=== PATIENT | female | born 1940 | race Caucasian/White ===

== ENCOUNTER → 2017-01-20 | Outpatient (CLI) | payer MEDICARE ==
--- NOTE | 2017-01-24 07:31 | MM ---
Reason for exam: screening (asymptomatic). Last mammogram was performed 1 year and 10 months ago. History: Patient is postmenopausal. Family history of breast cancer in grandmother. Physical Findings: A clinical breast exam by your physician is recommended on an annual basis and results should be correlated with mammographic findings. MG 3D Screening Mammo W/Cad Bilateral CC and MLO view(s) were taken. Prior study comparison: March 17, 2015, bilateral MG screening mammo w CAD. January 21, 2014, bilateral digital screening mammo w/CAD. October 10, 2012, bilateral digital screening mammo w/CAD. Finding: There are typically benign vascular, round calcifications in both breasts. There is no discrete abnormality. ASSESSMENT: Benign, BI-RAD 2 RECOMMENDATION: Routine screening mammogram of both breasts in 1 year.
== END | disposition home or self-care (01) ==
LOC: RADMAMWWP 12:45
PROVIDERS: ATTEND Family Medicine
DX: Z12.31 Encounter for screening mammogram for malignant neoplasm of breast (principal)
CPT/HCPCS: 77063; G0202

== ENCOUNTER → 2017-02-22 | Outpatient (CLI) | payer MEDICARE ==
--- NOTE | 2017-02-22 16:40 | US ---
EXAMINATION TYPE: US kidneys/renal and bladder DATE OF EXAM: 02/22/2017 4:21 PM COMPARISON: NONE CLINICAL HISTORY: HX of Microhematuria R31.21; Prior renal stones per patient. EXAM MEASUREMENTS: Right Kidney: 10.7 x 5.4 x 4.5 cm Left Kidney: 11.3 x 5.5 x 5.0 cm Post Void Residual Volume: 15.8 mL Right Kidney: cortical thinning is noted, but measures >0.8cm Left Kidney: lobular borders; cortical thinning is present as is <0.8cm; very mild hydro noted on papa ges #37 and 44. Bladder: wnl Bilateral Jets seen: Yes Normal Post Void Residual: Yes The urinary bladder is anechoic. Bilateral ureteral jets are seen. IMPRESSION: Bilateral cortical thinning. Mild left-sided hydronephrosis suggested.
== END ==
LOC: RADUSMAIN 15:51
PROVIDERS: ATTEND Urology
DX: R31.29 Other microscopic hematuria (principal)
CPT/HCPCS: 76770

== ENCOUNTER → 2018-11-12 | Outpatient (CLI) | payer MEDICARE ==
--- NOTE | 2018-11-12 18:25 | BD ---
EXAMINATION TYPE: Axial Bone Density DATE OF EXAM: 11/12/2018 COMPARISON: NONE CLINICAL HISTORY: 78-year-old female screening for osteoporosis Height: 5 FT 3 1/2 IN Weight: 162 FRAX RISK QUESTIONS: Secondary Osteoporosis: 3. Menopause before 45: YES RISK FACTORS HISTORY OF: Active: YES Postmenopausal woman: AGE 46 Lost more than 2 inches in height since high school: YES MEDICATIONS: Additional Medications: CRESTOR Additional History: EXAM MEASUREMENTS: Bone mineral densitometry was performed using the Transactis System. Bone mineral density as measured about the Lumbar spine is: ----- L1-L4(G/cm2): 1.162 T Score Values are as follows: ----- L2: -0.4 ----- L3: -0.2 ----- L4: 0.7 ----- L1-L4: -0.1 BASELINE Bone mineral density about the R hip (g/cm2): 0.875 Bone mineral density about the L hip (g/cm2): 0.941 T Score values are as follows: -----R Neck: -1.2 -----L Neck: -0.7 -----R Total: 0.1 -----L Total: 0.0 BASELINE IMPRESSION: Osteopenia (T Score between -2.5 and -1). There is slightly increased risk of fracture and the patient may be considered for treatment. Re-Screen 2-5 years. NOTE: T-SCORE=SD OF THE YOUNG ADULT MEAN.
--- NOTE | 2018-11-13 11:33 | MM ---
Reason for exam: screening (asymptomatic). Last mammogram was performed 1 year and 10 months ago. History: Patient is postmenopausal. Family history of breast cancer in grandmother. MG 3D Screening Mammo W/Cad Bilateral CC and MLO view(s) were taken. Prior study comparison: January 20, 2017, bilateral MG 3d screening mammo w/cad. March 17, 2015, bilateral MG screening mammo w CAD. The breast tissue is heterogeneously dense. This may lower the sensitivity of mammography. There is a 6 mm round indistinct left breast density in the slight upper anterior positions. This finding is new when compared to 2017. There are benign-appearing diffuse and grouped round vascular dystrophic bilateral breast calcifications. ASSESSMENT: Incomplete: need additional imaging evaluation, BI-RAD 0 RECOMMENDATION: Ultrasound of the left breast.
== END | disposition home or self-care (01) ==
LOC: RADMAMWWP 13:56
PROVIDERS: ATTEND Family Medicine
DX: Z12.31 Encounter for screening mammogram for malignant neoplasm of breast (principal); Z13.820 Encounter for screening for osteoporosis; M85.80 Other specified disorders of bone density and structure, unspecified site
CPT/HCPCS: 77063; 77067; 77080

== ENCOUNTER → 2018-11-23 | Outpatient (CLI) | payer MEDICARE ==
--- NOTE | 2018-11-23 11:17 | USB ---
Reason for exam: additional evaluation requested from abnormal screening. History: Patient is postmenopausal. Family history of breast cancer in grandmother. Physical Findings: Nurse did not find any significant physical abnormalities on exam. US Breast Workup Limited LT Left limited breast ultrasound including focal area of concern, retroareolar and axilla demonstrates a duct at 12 o'clock and ductal ectasia at 11 o'clock and posterior nipple. These results were verbally communicated with the patient and result sheet given to the patient on 11/23/18. ASSESSMENT: Incomplete: need additional imaging evaluation, BI-RAD 0 RECOMMENDATION: Special view mammogram of the left breast.
--- NOTE | 2018-11-23 11:18 | MM ---
Reason for exam: additional evaluation requested from abnormal screening. Last mammogram was performed less than 1 month ago. History: Patient is postmenopausal. Family history of breast cancer in grandmother. Physical Findings: Nurse did not find any significant physical abnormalities on exam. MG 3D Work Up W/Cad LT Spot compression CC, spot compression MLO, and ML view(s) were taken of the left breast. Prior study comparison: November 12, 2018, bilateral MG 3d screening mammo w/cad. January 20, 2017, bilateral MG 3d screening mammo w/cad. The breast tissue is heterogeneously dense. This may lower the sensitivity of mammography. Distinct lesion not as well seen on additional views, correlates with ultrasound today. These results were verbally communicated with the patient and result sheet given to the patient on 11/23/18. ASSESSMENT: Probably benign, BI-RAD 3 RECOMMENDATION: Follow-up diagnostic mammogram of the left breast in 6 months.
== END ==
LOC: RADUSWWP 07:00
PROVIDERS: ATTEND Family Medicine
DX: R92.8 Other abnormal and inconclusive findings on diagnostic imaging of breast (principal)
CPT/HCPCS: 77065; 76642; G0279; 77061

== ENCOUNTER → 2019-08-13 | Outpatient (CLI) | payer MEDICARE ==
--- NOTE | 2019-08-13 14:05 | MM ---
Reason for exam: follow-up at short interval from prior study. Last mammogram was performed 9 months ago. History: Patient is postmenopausal. Family history of breast cancer in paternal grandmother at age 60. Physical Findings: Nurse did not find any significant physical abnormalities on exam. MG 3D Diag Mammo W/Cad LT CC, MLO, and ML view(s) were taken of the left breast. Prior study comparison: November 23, 2018, left breast MG 3d work up w/cad LT. November 12, 2018, bilateral MG 3d screening mammo w/cad. The breast tissue is heterogeneously dense. This may lower the sensitivity of mammography. Benign appearing calcifications in the left breast. Left upper outer quadrant anterior depth 4mm mass is less conspicuous. These results were verbally communicated with the patient and result sheet given to the patient on 08/13/19. ASSESSMENT: Benign, BI-RAD 2 RECOMMENDATION: Follow-up diagnostic mammogram of both breasts in 6 months. Back on schedule.
== END | disposition home or self-care (01) ==
LOC: RADMAMWWP 13:09
PROVIDERS: ATTEND Family Medicine
DX: R92.8 Other abnormal and inconclusive findings on diagnostic imaging of breast (principal)
CPT/HCPCS: 77065; G0279; 77061

== ENCOUNTER 2020-08-11 09:57 | Day surgery (SDC) | payer MEDICARE ==
[2020-08-06 16:21] VITALS: BMI 24.8
[~2020-08-11 09:57] MED LIST: LACTATED RINGERS 1,000 ML IV SCH; LIDOCAINE 1% (10MG/ML) FOR IV START INTRADERMA PRN
[2020-08-11] MEDS ORDERED: LACTATED RINGERS 1,000 ML IV ONE (10:20)
[2020-08-11 10:21] VITALS: TEMP 97.8
[2020-08-11] MEDS ORDERED: PROPOFOL 10 MG/ML 20 ML VIAL IV ONE (11:47)
[2020-08-11] MEDS ORDERED: LIDOCAINE 1% INJ 10MG/ML (20 ML MDV) ONE (11:47)
--- NOTE | 2020-08-11 12:42 | P.PCN ---
Date of Procedure: 08/11/20 Description of Procedure: BRIEF HISTORY: Patient is a 79-year-old female presenting for outpatient colonoscopy for history of colon polyps. Last colonoscopy 5 years ago. Patient has a known history of diverticulosis. Does report colon cancer in her father PROCEDURE PERFORMED: Colonoscopy with polypectomy. PREOPERATIVE DIAGNOSIS: . Colon polyps. ESTIMATED BLOOD LOSS: Minimal. IV sedation per Anesthesia. PROCEDURE: After informed consent was obtained, the patient, was brought into the endoscopy unit. IV sedation was administered by Anesthesia under continuous monitoring. Digital rectal examination was normal. Initially the Olympus CF-190 flexible video colonoscope was then inserted in the rectum, gradually advanced into the cecum without any difficulty. Careful examination was performed as the scope was gradually being withdrawn. Ileocecal valve and the appendiceal orifice were visualized and appeared normal. Prep was excellent. Mucosa of the cecum, ascending colon, transverse colon, descending colon, sigmoid colon, and rectum appeared normal. Multiple large and small mouth diverticula noted in the left colon as well as throughout the colon. Diminutive 3 mm ascending colon polyp removed with cold snare polypectomy. 3 mm hepatic flexure polyp removed with cold snare polypectomy. 5 mm transverse colon polyp removed with snare polypectomy. 3 polyps removed from the descending colon measuring 3 mm in size to 6 mm in size removed with cold snare polypectomy. Retroflexion was performed in the rectum and no lesions were seen. The patient tolerated the procedure well. IMPRESSION: Pandiverticulosis, severe in the sigmoid colon with associated sigmoid stri cture. 6 polyps removed with cold snare polypectomy from the ascending colon, hepatic flexure, transverse colon and descending colon 3. RECOMMENDATIONS: Findings of this examination were discussed with the patient. Okay to resume diet. Okay to resume medications. Await pathology from polypectomy. Can consider repeat colonoscopy in 5 years if medically stable at that time.
[2020-08-11 13:02] VITALS: BP 185/71; PULSE 52; RESP 20
== END 2020-08-11 13:29 | disposition home or self-care (01) ==
LOC: ORWHC2ENDO 09:57
PROVIDERS: ATTEND Internal Medicine
DX: Z12.11 Encounter for screening for malignant neoplasm of colon (principal); D12.2 Benign neoplasm of ascending colon; D12.3 Benign neoplasm of transverse colon; D12.4 Benign neoplasm of descending colon; Z86.010 Personal history of colon polyps; Z80.0 Family history of malignant neoplasm of digestive organs; Z87.891 Personal history of nicotine dependence; H35.30 Unspecified macular degeneration; Z90.710 Acquired absence of both cervix and uterus; Z98.41 Cataract extraction status, right eye; Z98.42 Cataract extraction status, left eye; Z90.89 Acquired absence of other organs
CPT/HCPCS: 88305; 45385; J2001; J2704

== ENCOUNTER 2020-08-19 15:41 | Emergency (ER) | payer MEDICARE ==
[2020-08-19 16:11] VITALS: RESP 16
[2020-08-19 16:43] LABS: Basophils % (A) 0 %; Eosinophils # (A) 0.3 k/uL (0-0.7); Eosinophils % (A) 4 %; HGB 12.8 gm/dL (11.4-16.0); Lymphocytes # (A) 2.4 k/uL (1.0-4.8); Lymphocytes % (A) 33 %; MCH 31.5 pg (25.0-35.0); MCHC 32.9 g/dL (31.0-37.0); MCV 95.9 fL (80.0-100.0); Mean Platelet Volume 7.6; Monocytes # (A) 0.4 k/uL (0-1.0); Monocytes % (A) 5 %; Neutrophils % (A) 56 %; Platelet Count 298 k/uL (150-450); RBC 4.07 m/uL (3.80-5.40); RDW 12.6 % (11.5-15.5); WBC 7.1 k/uL (3.8-10.6)
[2020-08-19 16:53] LABS: Magnesium 2.1 mg/dL (1.6-2.3); Potassium 4.2 mmol/L (3.5-5.1); Total Bilirubin 0.5 mg/dL (0.2-1.3); Total Protein 6.6 g/dL (6.3-8.2)
--- NOTE | 2020-08-19 17:00 | XR ---
EXAMINATION TYPE: XR chest 2V DATE OF EXAM: 08/19/2020 COMPARISON: NONE HISTORY: Hypertension TECHNIQUE: 2 views FINDINGS: Heart is normal. Lungs are clear of consolidation. There are no hilar masses. There are joon st leads. Bony thorax is intact. IMPRESSION: No active cardiopulmonary disease. Normal heart.
--- NOTE | 2020-08-19 17:02 | ED ---
Recheck HPI - General Chief Complaint: Recheck/Abnormal Lab/Rx Stated Complaint: High BP Time Seen by Provider: 08/19/20 16:30 Source: patient, RN notes reviewed, old records reviewed Mode of arrival: ambulatory Limitations: no limitations - History of Present Illness Initial Comments: This is 79-year-old female with no prior history of hypertension who states she had a colonoscopy done last week ever since that time she been having elevations of her blood pressure. No headaches dizziness blurry vision chest pain shortness breath or other symptoms she states she does have a history of irregular heart rate. She had rheumatic fever as a child. She states her blood pressure is been ranging from 165-190 systolically. No other complaints or modifying factors at this time is in by her doctor for evaluation - Related Data Home Medications Medication Instructions Recorded Confirmed Vit C/E/Zn/Coppr/Lutein/Zeaxan 1 cap PO BID 08/06/20 08/19/20 [Preservision Areds 2 Softgel] Mv-Min/Vit C/Glut/Lysine/Hc124 1 tab PO DAILY 08/19/20 08/19/20 [Airborne Tablet Chewable] Previous Rx's Medication Instructions Recorded Enalapril [Vasotec] 10 mg PO DAILY #15 tablet 08/19/20 Allergies Allergy/AdvReac Type Severity Reaction Status Date / Time No Known Allergies Allergy Verified 08/19/20 17:38 Review of Systems ROS Statement: Those systems with pertinent positive or pertinent negative responses have been documented in the HPI. ROS Other: All systems not noted in ROS Statement are negative. Past Medical History Past Medical History: Hyperlipidemia, Osteoarthritis (OA) Additional Past Medical History / Comment(s): MACULAR DEGENERATION History of Any Multi-Drug Resistant Organisms: None Reported Past Surgical History: Hysterectomy, Tonsillectomy Additional Past Surgical History / Comment(s): CATARACT SURGERY -BILATERAL WITH LENS IMPLANT Past Anesthesia/Blood Transfusion Reactions: No Reported Reaction Past Psychological History: No Psychological Hx Reported Smoking Status: Former smoker Past Alcohol Use History: Occasional Past Drug Use History: None Reported - Past Family History Mother Family Medical History: Cancer Additional Family Medical History / Comment(s): COLON , OVARIAN CANCER Father Family Medical History: Cancer Additional Family Medical History / Comment(s): COLON CANCER General Exam - General Exam Comments Initial Comments: this is a well-developed well-nourished awake alert oriented 3 female Limitations: no limitations General appearance: alert, in no apparent distress Head exam: Present: atraumatic, normocephalic, normal inspection Eye exam: Present: normal appearance, PERRL, EOMI. Absent: scleral icterus, conjunctival injection, periorbital swelling ENT exam: Present: normal exam, mucous membranes moist Neck exam: Present: normal inspection, full ROM, other (no stridor JVD or bruits). Absent: tenderness, meningismus, lymphadenopathy Respiratory exam: Present: normal lung sounds bilaterally. Absent: respiratory distress, wheezes, rales, rhonchi, stridor Cardiovascular Exam: Present: regular rate, normal rhythm, normal heart sounds. Absent: systolic murmur, diastolic murmur, rubs, gallop, clicks GI/Abdominal exam: Present: soft, normal bowel sounds. Absent: distended, tenderness, guarding, rebound, rigid, bruit, pulsatile mass Extremities exam: Present: normal inspection, full ROM, normal capillary refill. Absent: tenderness, pedal edema, joint swelling, calf tenderness Back exam: Present: normal inspection Neurological exam: Present: alert, oriented X3, CN II-XII intact Psychiatric exam: Present: normal affect, normal mood Skin exam: Present: warm, dry, intact, normal color. Absent: rash Course Vital Signs 08/19/20 08/19/20 08/19/20 15:43 16:10 17:50 Temperature 98.5 F Pulse Rate 62 64 52 L Respiratory 18 16 16 Rate Blood Pressure 205/81 198/94 212/90 O2 Sat by Pulse 99 99 98 Oximetry 08/19/20 08/19/20 18:34 19:15 Temperature Pulse Rate 51 L 50 L Respiratory 16 16 Rate Blood Pressure 226/85 199/85 O2 Sat by Pulse 99 Oximetry Medical Decision Making - Medical Decision Making I did reevaluate patient on multiple occasions she has remained asymptomatic her blood pressure started trend down after treatment and fluids prescription for enalapril is a follow-up with Dr. Rosado and return when necessary - Lab Data Result diagrams: 08/19/20 16:34 08/19/20 16:34 Lab Results 08/19/20 08/19/20 08/19/20 Range/Units 16:34 16:34 16:34 WBC 7.1 (3.8-10.6) k/uL RBC 4.07 (3.80-5.40) m/uL Hgb 12.8 (11.4-16.0) gm/dL Hct 39.0 (34.0-46.0) % MCV 95.9 (80.0-100.0) fL MCH 31.5 (25.0-35.0) pg MCHC 32.9 (31.0-37.0) g/dL RDW 12.6 (11.5-15.5) % Plt Count 298 (150-450) k/uL Neutrophils % 56 % Lymphocytes % 33 % Monocytes % 5 % Eosinophils % 4 % Basophils % 0 % Neutrophils # 4.0 (1.3-7.7) k/uL Lymphocytes # 2.4 (1.0-4.8) k/uL Monocytes # 0.4 (0-1.0) k/uL Eosinophils # 0.3 (0-0.7) k/uL Basophils # 0.0 (0-0.2) k/uL Sodium 142 (137-145) mmol/L Potassium 4.2 (3.5-5.1) mmol/L Chloride 109 H (98-107) mmol/L Carbon Dioxide 29 (22-30) mmol/L Anion Gap 4 mmol/L BUN 16 (7-17) mg/dL Creatinine 0.80 (0.52-1.04) mg/dL Est GFR (CKD-EPI)AfAm 82 (>60 ml/min/1.73 sqM) Est GFR (CKD-EPI)NonAf 72 (>60 ml/min/1.73 sqM) Glucose 95 (74-99) mg/dL Calcium 10.0 (8.4-10.2) mg/dL Magnesium 2.1 (1.6-2.3) mg/dL Total Bilirubin 0.5 (0.2-1.3) mg/dL AST 19 (14-36) U/L ALT 14 (4-34) U/L Alkaline Phosphatase 78 (38-126) U/L Creatine Kinase 45 (30-135) U/L Troponin I <0.012 (0.000-0.034) ng/mL Total Protein 6.6 (6.3-8.2) g/dL Albumin 4.0 (3.5-5.0) g/dL - EKG Data -: EKG Interpreted by Nd EKG shows normal: sinus rhythm (inus bradycardia with PACs rate 52. Interval 160 QRS duration 84 QT since QTC 422/[address]-T wave configuration) - Radiology Data Radiology results: report reviewed (imaging reviewed no acute findings.), image reviewed Disposition Clinical Impression: Hypertension Disposition: HOME SELF-CARE Condition: Good Instructions (If sedation given, give patient instructions): Hypertension (ED) Additional Instructions: Medication prescription sent here prefer to the preferred pharmacy Prescriptions: Enalapril [Vasotec] 10 mg PO DAILY #15 tablet Is patient prescribed a controlled substance at d/c from ED?: No Referrals: Guille Rosado DO [Primary Care Provider] - 1-2 days
[2020-08-19] MEDS ORDERED: ENALAPRILAT 1.25 MG/ML 1 ML VIAL IVP STA ×2 (17:05→18:37)
[2020-08-19] MEDS ORDERED: SODIUM CHLORIDE 0.9% 500 ML 500 ML IV STA (18:37)
[2020-08-19 19:29] VITALS: BP 213/81; PULSE 55; TEMP 97.9
== END 2020-08-19 19:37 | disposition home or self-care (01) ==
LOC: EC 15:41
DX: I10 Essential (primary) hypertension (principal); Z87.891 Personal history of nicotine dependence
CPT/HCPCS: 36415; 71046; 80053; 82550; 83735; 84484; 85025; 93005; 96361; 96374; 96376; 99284

== ENCOUNTER → 2020-08-19 | Outpatient (CLI) | payer MEDICARE ==
--- NOTE | 2020-08-20 11:15 | MM ---
Reason for exam: follow-up at short interval from prior study. Last mammogram was performed 1 year ago. History: Patient is postmenopausal. Family history of breast cancer in paternal grandmother at age 80. Physical Findings: Nurse did not find any significant physical abnormalities on exam. MG 3D Diag Mammo W/Cad LOGAN Bilateral CC and MLO view(s) were taken. Prior study comparison: August 13, 2019, left breast MG 3d diag mammo w/cad LT. November 23, 2018, left breast MG 3d work up w/cad LT. There are scattered fibroglandular densities. Finding: There are typically benign coarse calcifications in the left breast. No significant changes in finding since August 13, 2019 and November 23, 2018. These results were verbally communicated with the patient and result sheet given to the patient on 08/19/20. ASSESSMENT: Benign, BI-RAD 2 RECOMMENDATION: Routine screening mammogram of both breasts in 1 year.
== END | disposition home or self-care (01) ==
LOC: RADMAMWWP 14:56
PROVIDERS: ATTEND Family Medicine
DX: R92.8 Other abnormal and inconclusive findings on diagnostic imaging of breast (principal)
CPT/HCPCS: 77066; G0279; 77062

== ENCOUNTER → 2020-09-01 | Outpatient (CLI) | payer MEDICARE ==
[2020-09-01 15:30] LABS: African American GFR (CKD) 71.5 (60.0-200.0); Anion Gap 7.2 mmol/L (4.00-12.00); BUN/Creat Ratio 24.44 Ratio (12.00-20.00); Calcium 10.1 mg/dL (8.7-10.3); Carbon Dioxide 26.8 mmol/L (21.6-31.8); Non-African American GFR(CKD) 61.7 (60.0-200.0)
== END | disposition home or self-care (01) ==
LOC: LABWHC1 09:58
PROVIDERS: ATTEND Internal Medicine Interventional Cardiology
DX: I10 Essential (primary) hypertension (principal)
CPT/HCPCS: 36415; 80048

== ENCOUNTER → 2021-11-02 | Outpatient (CLI) | payer MEDICARE ==
--- NOTE | 2021-11-02 09:19 | USB ---
Reason for exam: additional evaluation requested from abnormal screening. History: Patient is postmenopausal. Family history of breast cancer in paternal grandmother at age 80. US Breast LT Technologist: Melida Razo Left complete breast ultrasound includes all four quadrants, the retroareolar region and axilla. Finding demonstrates duct ectasia at 2 o'clock and at the nipple and a 0.4 x 0.4cm calcification with shadowing at 1 o'clock compatible with oil cyst on mammogram. These results were verbally communicated with the patient and result sheet given to the patient on 11/02/21. ASSESSMENT: Benign, BI-RAD 2 RECOMMENDATION: Routine screening mammogram of both breasts in 1 year. Manage on a clinical basis with regard to left breast pain.
--- NOTE | 2021-11-02 09:31 | MM ---
Reason for exam: additional evaluation requested from prior study. Last mammogram was performed 1 year and 2 months ago. History: Patient is postmenopausal. Family history of breast cancer in paternal grandmother at age 80. Physical Findings: Nurse did not find any significant physical abnormalities on exam. MG 3D Diag Mammo W/Cad LOGAN Bilateral CC and MLO view(s) were taken. Prior study comparison: August 19, 2020, bilateral MG 3d diag mammo w/cad LOGAN. August 13, 2019, left breast MG 3d diag mammo w/cad LT. There are scattered fibroglandular densities. There is chronic nodularity in the left posterior MLO central position. Scattered benign calcifications including vascular, oil cyst and secretory. No significant new findings when compared with previous films. These results were verbally communicated with the patient and result sheet given to the patient on 11/02/21. ASSESSMENT: Incomplete: need additional imaging evaluation, BI-RAD 0 RECOMMENDATION: Ultrasound of the left breast. (for pain)
== END | disposition home or self-care (01) ==
LOC: RADMAMWWP 07:38
PROVIDERS: ATTEND Family Medicine
DX: N64.4 Mastodynia (principal); R92.8 Other abnormal and inconclusive findings on diagnostic imaging of breast; Z78.0 Asymptomatic menopausal state; Z80.3 Family history of malignant neoplasm of breast
CPT/HCPCS: 77066; 76641; G0279; 77062

== ENCOUNTER → 2022-05-16 | Outpatient (CLI) | payer MEDICARE ==
--- NOTE | 2022-05-16 12:47 | US ---
EXAMINATION TYPE: US kidneys/renal and bladder DATE OF EXAM: 05/16/2022 COMPARISON: US: 02/22/17 CLINICAL HISTORY: N28.9 DISORDER OF KIDNEY AND URETER. Renal dz EXAM MEASUREMENTS: Right Kidney: 10.8 x 4.5 x 4.6 cm Left Kidney: 10.7 x 4.1 x 4.7 cm Right Kidney: Simple Cyst seen in the lower pole measuring 1.1 x 1.1 x 1.1 cm. The renal cortex was t hin measuring 0.8 cm. Left Kidney: hydronephrosis Bladder: wnl Bilateral Jets seen: Limited due to bowel gas IMPRESSION: 1. Mild left hydronephrosis uncertain etiology. 2. Simple right renal cyst. 3. Cortical thinning right kidney.
== END | disposition home or self-care (01) ==
LOC: RADUSWWP 10:15
PROVIDERS: ATTEND Family Medicine
DX: N13.30 Unspecified hydronephrosis (principal); N28.1 Cyst of kidney, acquired
CPT/HCPCS: 76770

== ENCOUNTER → 2023-02-21 | Outpatient (CLI) | payer MEDICARE ==
--- NOTE | 2023-02-22 08:17 | MM ---
Reason for Exam: Screening (asymptomatic). Last mammogram was performed 1 year(s) and 4 month(s) ago. Patient History: Menarche at age 18. First Full-Term at age 27. Hysterectomy at age 58. Postmenopausal. Paternal grandmother had breast cancer, age 80. Mother had ovarian cancer, age 85. Risk Values: July 5 year model risk: 1.7%. NCI Lifetime model risk: 2.6%. Prior Study Comparison: 08/13/2019 Left Diagnostic Mammogram, [facility]. 08/19/2020 Bilateral Diagnostic Mammogram, [facility]. 11/02/2021 Bilateral Diagnostic Mammogram, [facility]. Tissue Density: The breast tissue is heterogeneously dense. This may lower the sensitivity of mammography. Findings: Analyzed By CAD. There are benign-appearing bilateral axillary lymph nodes redemonstrated. There are benign-appearing small round and vascular calcifications bilaterally redemonstrated. There is no suspicious group of microcalcifications or new suspicious mass in either breast. Overall Assessment: Benign, BI-RAD 2 Management: Screening Mammogram of both breasts in 1 year. . Patient should continue monthly self-breast exams. A clinical breast exam by your physician is recommended on an annual basis. This exam should not preclude additional follow-up of suspicious palpable abnormalities. Note on July scores and lifetime risk: 1. A July score greater than 3% is considered moderate risk. If this is the case, consider specialist referral to assess eligibility for a risk reducing agent. 2. If overall lifetime risk for the development of breast cancer is 20% or higher, the patient may qualify for future screening with alternating mammogram and breast MRI. Electronically signed and approved by: Dimitry Jaeger M.D.
== END | disposition home or self-care (01) ==
LOC: RADMAMWWP 08:01
PROVIDERS: ATTEND Family Medicine
DX: Z12.31 Encounter for screening mammogram for malignant neoplasm of breast (principal); Z78.0 Asymptomatic menopausal state; Z80.3 Family history of malignant neoplasm of breast
CPT/HCPCS: 77063; 77067

== ENCOUNTER 2023-03-28 06:51 | Day surgery (SDC) | payer MEDICARE ==
[2023-03-27 12:43] VITALS: BMI 22.8
[2023-03-28 07:27] VITALS: TEMP 97.5
[2023-03-28] MEDS: LACTATED RINGERS 1,000 ML IV SCH ×2 (07:27→08:24)
[2023-03-28] MEDS ORDERED: PROPOFOL 10 MG/ML 20 ML VIAL IV ONE (08:30)
--- NOTE | 2023-03-28 08:53 | P.PCN ---
Date of Procedure: 03/28/23 Procedure(s) Performed: BRIEF HISTORY: Patient is a 82-year-old pleasant white female scheduled for an elective colonoscopy as a part of surveillance of prior history of colon polyps. Last colonoscopy was 3 years ago and can't the patient had 9 polyps. Her mother and father both were diagnosed with colon cancer in the 80s. PROCEDURE PERFORMED: Colonoscopy with snare polypectomy. PREOPERATIVE DIAGNOSIS: History of colon polyps and family history of colon cancer. IV sedation per Anesthesia. PROCEDURE: After informed consent was obtained, the patient, was brought into the endoscopy unit. IV sedation was administered by Anesthesia under continuous monitoring. Digital rectal examination was normal. Initially the Olympus CF-160 flexible video pediatric colonoscope was then inserted in the rectum, gradually advanced into the cecum without any difficulty. Careful examination was performed as the scope was gradually being withdrawn. Ileocecal valve and the appendiceal orifice were visualized and appeared normal. Prep was excellent. Mucosa of the cecum, had a 5 mm polyp removed by snare polypectomy. In the transverse colon was another 5 mm sessile polyp removed by snare polypectomy. Rest of the ascending colon, transverse colon, descending colon, sigmoid colon, and rectum appeared normal. Moderate sigmoid diverticulosis. Retroflexion was performed in the rectum and no lesions were seen. The patient tolerated the procedure well. IMPRESSION: 5 mm cecal polyp status post polypectomy 5 mm transverse colon polyp status post polypectomy Moderate sigmoid diverticulosis RECOMMENDATIONS: Findings of this examination were discussed with the patient as well as a family. She was advised to follow with the biopsy result. If the biopsy revealed adenoma she can have a repeat colonoscopy in 3 years.
[2023-03-28 09:18] VITALS: BP 163/71; PULSE 54; RESP 18
== END 2023-03-28 09:45 | disposition home or self-care (01) ==
LOC: ORWHC2ENDO 06:51
PROVIDERS: ATTEND Internal Medicine Gastroenterology
DX: Z12.11 Encounter for screening for malignant neoplasm of colon (principal); D12.0 Benign neoplasm of cecum; D12.3 Benign neoplasm of transverse colon; K57.30 Diverticulosis of large intestine without perforation or abscess without bleeding; E78.5 Hyperlipidemia, unspecified; M19.90 Unspecified osteoarthritis, unspecified site; Z86.010 Personal history of colon polyps; Z80.0 Family history of malignant neoplasm of digestive organs; Z87.891 Personal history of nicotine dependence; Z79.899 Other long term (current) drug therapy
CPT/HCPCS: 88305; 45385; J2704

== ENCOUNTER → 2024-03-21 | Outpatient (CLI) | payer MEDICARE ==
--- NOTE | 2024-03-21 20:17 | MM ---
Reason for Exam: Screening (asymptomatic). Last screening mammogram was performed 12 month(s) ago. Patient History: Menarche at age 18. First Full-Term at age 27. Hysterectomy at age 58. Postmenopausal. Paternal grandmother had breast cancer, age 80. Mother had ovarian cancer, age 85. Risk Values: July 5 year model risk: 1.6%. NCI Lifetime model risk: 2.4%. Prior Study Comparison: 08/19/2020 Bilateral Diagnostic Mammogram, [facility]. 11/02/2021 Bilateral Diagnostic Mammogram, [facility]. 02/21/2023 Bilateral MG 3D screening mammo w/cad, [facility]. Tissue Density: There are scattered areas of fibroglandular density. Findings: Analyzed By CAD. Unchanged subareolar nodularity on the right. Asymmetric density lateral aspect of the right breast anterior depth is more defined. Further evaluation is recommended. Overall Assessment: Incomplete: need additional imaging evaluation, BI-RAD 0 Management: Special View Mammogram of the right breast. Diagnostic Breast Ultrasound of the right breast. Additional views including spot 3-D CC, 3-D CC rolled, and 3-D lateral views. [facility] will attempt to contact patient to return for supplemental views and ultrasound if indicated. Electronically signed and approved by: Guerline Shaw M.D. Radiologist
== END | disposition home or self-care (01) ==
LOC: RADMAMWWP 07:38
PROVIDERS: ATTEND Family Medicine
DX: Z12.31 Encounter for screening mammogram for malignant neoplasm of breast (principal); Z78.0 Asymptomatic menopausal state; Z80.3 Family history of malignant neoplasm of breast
CPT/HCPCS: 77063; 77067

== ENCOUNTER → 2024-03-26 | Outpatient (CLI) | payer MEDICARE ==
--- NOTE | 2024-03-26 08:35 | USB ---
Reason for Exam: Additional evaluation requested from abnormal screening. Patient History: Menarche at age 18. First Full-Term at age 27. Hysterectomy at age 58. Postmenopausal. Paternal grandmother had breast cancer, age 80. Mother had ovarian cancer, age 85. Risk Values: July 5 year model risk: 1.6%. NCI Lifetime model risk: 2.4%. Technique: Method: Targeted. Doppler: Color. Patient Position: Supine. Prior Study Comparison: 11/02/2021 Bilateral Diagnostic Mammogram, [facility]. 02/21/2023 Bilateral MG 3D screening mammo w/cad, [facility]. 03/21/2024 Bilateral MG 3D screening mammo w/cad, [facility]. Findings: The lateral section of the breast of the right breast, the periareolar of the right breast, the axilla of the right breast and the retroareolar of the right breast were scanned. Targeted ultrasound lateral right breast from 6:00 to 10:00 including scanning of the material or region and axilla. Scattered duct ectasia is noted likely accounting for the mammographic finding. No suspicious solid or cystic lesion or axillary lymphadenopathy. Overall Assessment: Benign, BI-RAD 2 Management: Screening Mammogram of both breasts in 1 year. A clinical breast exam by your physician is recommended on an annual basis and results should be correlated with mammographic findings. This exam should not preclude additional follow-up of suspicious palpable abnormalities. Results were given to the patient verbally at the time of exam. Electronically signed and approved by: Guerline Shaw M.D. Radiologist
--- NOTE | 2024-03-26 08:37 | MM ---
Reason for Exam: Additional evaluation requested from abnormal screening. Last screening mammogram was performed less than 1 month ago. Patient History: Menarche at age 18. First Full-Term at age 27. Hysterectomy at age 58. Postmenopausal. Paternal grandmother had breast cancer, age 80. Mother had ovarian cancer, age 85. Risk Values: July 5 year model risk: 1.6%. NCI Lifetime model risk: 2.4%. Prior Study Comparison: 08/13/2019 Left Diagnostic Mammogram, [facility]. 08/19/2020 Bilateral Diagnostic Mammogram, [facility]. 11/02/2021 Bilateral Diagnostic Mammogram, [facility]. 11/02/2021 Left Diagnostic Ultrasound, [facility]. 02/21/2023 Bilateral MG 3D screening mammo w/cad, [facility]. 03/21/2024 Bilateral MG 3D screening mammo w/cad, [facility]. Tissue Density: Right: There are scattered areas of fibroglandular density. Findings: Analyzed By CAD. 6 mm lateral nodularity seems to persist in the subareolar region on the true lateral view by resolves on the spot 3-D CC view. 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 Further ultrasound evaluation recommended. Overall Assessment: Incomplete: need additional imaging evaluation, BI-RAD 0 Management: Diagnostic Breast Ultrasound of the right breast. Electronically signed and approved by: Guerline Shaw M.D. Radiologist
== END | disposition home or self-care (01) ==
LOC: RADMAMWWP 07:58
PROVIDERS: ATTEND Family Medicine
DX: R92.321 Mammographic fibroglandular density, right breast (principal); Z78.0 Asymptomatic menopausal state; Z80.3 Family history of malignant neoplasm of breast
CPT/HCPCS: 77065; 76642; G0279; 77061